=== PATIENT | male | born 1955 | race Caucasian/White ===

== ENCOUNTER → 2020-09-24 | Outpatient (CLI) | payer BC ==
[~2020-09-24] MED LIST: ANORO ELLIPTA1 EACH INH; ATENOLOL25 MG PO; CETIRIZINE HCL10 MG PO; DICLOFENAC GEL 1% TOP; HYDROCODON-ACE1 EAC4 PO; IPRAT-ALBUT 0.5-3 ML INH; LIPITOR40 MG PO; NORVASC5 MG PO; OMEPRAZOLE20 M1 PO; OXYCODON-ACETA1 EAC1 PO; PERSANTINE PO; TRICOR 145 MG145 MG PO; VENTOLIN HFA 66.7 GM INH; VISTARIL50 MG PO; VITAMIN B12 PO; XARELTO1 EACH PO
== END ==
LOC: ECHO 11:23
DX: R93.1 Abnormal findings on diagnostic imaging of heart and coronary circulation (principal); I11.9 Hypertensive heart disease without heart failure; I35.1 Nonrheumatic aortic (valve) insufficiency
CPT/HCPCS: ECHO; 93306

== ENCOUNTER → 2020-09-27 | Outpatient (CLI) | payer BC | LOC: EXRD 15:04 | DX: J44.9 Chronic obstructive pulmonary disease, unspecified (principal); M19.90 Unspecified osteoarthritis, unspecified site | CPT/HCPCS: 71046 ==

== ENCOUNTER → 2020-09-30 | Outpatient (CLI) | payer BC | LOC: HEART 5 08:40 | DX: J44.9 Chronic obstructive pulmonary disease, unspecified (principal); M19.90 Unspecified osteoarthritis, unspecified site | CPT/HCPCS: 94060; 94729 ==

== ENCOUNTER → 2020-11-08 | Outpatient (CLI) | payer BC ==
[2020-11-08 10:24] LABS: HEMOGLOBIN 13.7 gm/dl (14.0-17.5); RED BLOOD COUNT 4.44 M/UL (4.20-5.50); WHITE BLOOD COUNT 6.4 K/UL (4.5-11.0)
[2020-11-08 10:46] LABS: BUN/CREATININE RATIO 17 (0-10)
== END ==
LOC: OPSV2 11-03 09:00 → EDSTATUS 09:00 → OPSV2 09:00
PROVIDERS: Orthopaedic Surgery
DX: Z01.818 Encounter for other preprocedural examination (principal); M16.0 Bilateral primary osteoarthritis of hip
CPT/HCPCS: 36415; 80048; 85025; 87081; 87086; 93005

== ENCOUNTER 2020-11-09 11:45 | Inpatient (IN) | payer BC ==
[~2020-11-09] VITALS: Ht 177.8 cm; Wt 107.0 kg
[~2020-11-09 11:45] MED LIST changes: -OXYCODON-ACETA1 EAC1 PO; -XARELTO1 EACH PO
[2020-11-16] MEDS ORDERED: OXYCODON-ACETA1 EAC1 PO (09:02)
[2020-11-16] MEDS ORDERED: XARELTO1 EACH PO (09:02)
[2020-11-17 06:11] LABS: HEMOGLOBIN 11.7 gm/dl (14.0-17.5); RED BLOOD COUNT 3.78 M/UL (4.20-5.50); WHITE BLOOD COUNT 12.2 K/UL (4.5-11.0)
[2020-11-18 03:59] LABS: HEMOGLOBIN 10.7 gm/dl (14.0-17.5); RED BLOOD COUNT 3.44 M/UL (4.20-5.50); WHITE BLOOD COUNT 11.1 K/UL (4.5-11.0)
[2020-11-19 04:21] LABS: HEMOGLOBIN 8.9 gm/dl (14.0-17.5); WHITE BLOOD COUNT 8.6 K/UL (4.5-11.0)
[2020-11-19 04:22] LABS: RED BLOOD COUNT 2.82 M/UL (4.20-5.50)
[2020-11-19 04:46] LABS: BUN/CREATININE RATIO 29 (0-10)
[2020-11-20 04:52] LABS: HEMOGLOBIN 7.8 gm/dl (14.0-17.5); WHITE BLOOD COUNT 6.9 K/UL (4.5-11.0)
[2020-11-20 04:53] LABS: RED BLOOD COUNT 2.51 M/UL (4.20-5.50)
[2020-11-20 05:25] LABS: BUN/CREATININE RATIO 21 (0-10)
--- NOTE | 2020-11-20 13:40 | NUR ---
11/20/20 1325 BACK TO BED FROM CHAIR POLAR ICE RESUMED NATHAN HIPS
--- NOTE | 2020-11-20 17:51 | NUR ---
11/20/20 1740 TOLERATING REGULAR DIET WELL
[2020-11-21 03:44] LABS: HEMOGLOBIN 7.7 gm/dl (14.0-17.5); RED BLOOD COUNT 2.47 M/UL (4.20-5.50); WHITE BLOOD COUNT 5.7 K/UL (4.5-11.0)
== END 2020-11-21 13:25 | disposition home health service (06) | DRG 462 ==
LOC: ZOBSOF 11-16 06:30 → M/S 11-16 16:09
PROVIDERS: Internal Medicine; Internal Medicine Infectious Disease; ADMIT Orthopaedic Surgery
PROC: 0SR904A Replacement of Right Hip Joint with Ceramic on Polyethylene Synthetic Substitute, Uncemented, Open Approach (ICD-10-PCS; 2020-11-16)
PROC: 0SRB04A Replacement of Left Hip Joint with Ceramic on Polyethylene Synthetic Substitute, Uncemented, Open Approach (ICD-10-PCS; principal; 2020-11-16 08:15)
DX: M16.0 Bilateral primary osteoarthritis of hip (principal); K56.7 Ileus, unspecified; N17.9 Acute kidney failure, unspecified; I10 Essential (primary) hypertension; J44.9 Chronic obstructive pulmonary disease, unspecified; F17.210 Nicotine dependence, cigarettes, uncomplicated; E78.5 Hyperlipidemia, unspecified; K21.9 Gastro-esophageal reflux disease without esophagitis; Z86.73 Personal history of transient ischemic attack (TIA), and cerebral infarction without residual deficits; Z90.49 Acquired absence of other specified parts of digestive tract; Z79.899 Other long term (current) drug therapy; Z20.822 Contact with and (suspected) exposure to COVID-19; E86.0 Dehydration; D64.9 Anemia, unspecified
CPT/HCPCS: 36415; 71045; 72170; 73522; 74018; 76000; 80048; 80053; 85025; 85027; 86850; 86900; 86901; 93005; 94640; 94664; 94760; 97110-GP-CQ; 97116-GP-CQ; 97162; 97165; 97530-GP-CQ; 97535; C1769; C1776; J0592; J0690; J1100; J1170; J1644; J2001; J2250; J2405; J2550; J2704; J2710; J2765; J3010; J3370; J7030; J7050; J7120; Q0177

== ENCOUNTER → 2020-11-15 | Outpatient (CLI) | payer BC ==
[~2020-11-15] MED LIST changes: +OXYCODON-ACETA1 EAC1 PO; +XARELTO1 EACH PO
[2020-11-15 09:18] LABS: BUN/CREATININE RATIO 15 (0-10)
== END ==
LOC: LAB 08:13
PROVIDERS: Orthopaedic Surgery
DX: Z01.812 Encounter for preprocedural laboratory examination (principal)
CPT/HCPCS: 36415; 80048; 86850; 86900; 86901